=== PATIENT | male | born 1970 | race Caucasian/White ===

== ENCOUNTER 2018-07-03 11:18 | Emergency (ER) | payer OTHER ==
[~2018-07-03] VITALS: Ht 172.7 cm; Wt 112.0 kg
== END 2018-07-03 15:11 | disposition home or self-care (01) ==
LOC: ER 11:18
DX: M54.5 Low back pain (principal); R07.89 Other chest pain

== ENCOUNTER → 2018-07-11 | Emergency (ER) | payer OTHER ==
[~2018-07-11] VITALS: Ht 172.7 cm; Wt 112.5 kg
== END | disposition left against medical advice (07) ==
LOC: ER 15:43
DX: M46.26 Osteomyelitis of vertebra, lumbar region (principal)